=== PATIENT | male | born 1995 | race Caucasian/White ===

== ENCOUNTER 2021-06-21 20:04 | Emergency (ER) | payer OTHER ==
[~2021-06-21] VITALS: Ht 182.9 cm; Wt 128.1 kg
[~2021-06-21 20:04] MED LIST: PRED10TA5 PO; [UNRECOGNIZED DRUG - REMARK]; [UNRECOGNIZED DRUG - REMARK]; [UNRECOGNIZED DRUG - REMARK]
[2021-06-21 20:28] VITALS: BP 136/82
--- NOTE | 2021-06-21 23:01 | NUR ---
PATIENT LEFT WITHOUT BEING SEEN BY DR. CHAN. NO FURTHER CARE PROVIDED FOR PATIENT.
== END 2021-06-21 23:01 | disposition left against medical advice (07) ==
LOC: MED 20:04
DX: M79.645 Pain in left finger(s) (principal); Z53.21 Procedure and treatment not carried out due to patient leaving prior to being seen by health care provider

== ENCOUNTER 2022-02-28 13:57 | Emergency (ER) | payer OTHER ==
[~2022-02-28] VITALS: Ht 177.8 cm; Wt 104.3 kg
[2022-02-28 14:01] VITALS: BP 135/100
--- NOTE | 2022-02-28 16:05 | NUR ---
Patient does not wish to proceed with medical care recommended by BISHOP COLVIN. Patient given information related to possible complications, up to and including , which could occur as a result of leaving hospital at this time. Patient verbalizes understanding of risks involved leaving against medical advice. Patient has signed AMA form. INFORMATION REGARDING SWALLOWING FOREIGN OBJECT GIVEN.
== END 2022-02-28 16:05 | disposition left against medical advice (07) ==
LOC: MED 13:57
DX: T18.9XXA Foreign body of alimentary tract, part unspecified, initial encounter (principal); Z79.899 Other long term (current) drug therapy; X58.XXXA Exposure to other specified factors, initial encounter; Y93.89 Activity, other specified; Y92.89 Other specified places as the place of occurrence of the external cause; Y99.8 Other external cause status
CPT/HCPCS: 99281

== ENCOUNTER 2022-03-06 15:16 | Emergency (ER) | payer OTHER ==
[~2022-03-06] VITALS: Ht 182.9 cm; Wt 99.8 kg
[2022-03-06 15:30] VITALS: BP 167/80
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
[2022-03-06] MEDS ORDERED: IBUP-2213 PO (16:49)
[2022-03-06] MEDS ORDERED: CAPS1ADH5 TP (16:49)
--- NOTE | 2022-03-06 17:11 | NUR ---
Patient discharged with v/s stable. Written and verbal after care instructions given and explained. Patient alert, oriented and verbalized understanding of instructions. Ambulatory with steady gait. All questions addressed prior to discharge. ID band removed. Patient advised to follow up with PMD. Rx of BROOKLYNN LINDER given. Patient educated on indication of medication including possible reaction and side effects. Opportunity to ask questions provided and answered.
== END 2022-03-06 17:11 | disposition home or self-care (01) ==
LOC: MED 15:16
DX: S20.20XA Contusion of thorax, unspecified, initial encounter (principal); Z79.899 Other long term (current) drug therapy; V89.2XXA Person injured in unspecified motor-vehicle accident, traffic, initial encounter; Y93.89 Activity, other specified; Y92.89 Other specified places as the place of occurrence of the external cause; Y99.8 Other external cause status
CPT/HCPCS: 71101; 99283